=== PATIENT | female | born 1955 | race Caucasian/White ===

== ENCOUNTER 2019-06-06 05:41 | Inpatient (IN) ==
[2019-06-06] MEDS ORDERED: TRANEXAMIC ACID 1,000 MG in NORMAL SALINE 100 ML IV PRN (06:00)
[2019-06-06] MEDS ORDERED: ROPIVACAINE HCL/PF 100 MG, EPINEPHrine 0.2 MG, KETOROLAC TROMETHAMINE 30 MG in NORMAL S... IJ PRN (06:00)
[2019-06-06] MEDS ORDERED: MORPHINE SULFATE 15 MG TABLET.SA PO PRN (06:00)
[2019-06-06] MEDS ORDERED: ceFAZolin SODIUM 1 GM VIAL IV PRN (06:00)
[2019-06-06] MEDS ORDERED: FLU VACC QS2019-20(6MOS UP)/PF 60 MCG/0.5 ML SYRINGE IM ONE (06:54)
[2019-06-06] MEDS ORDERED: ISOPROPYL ALCOHOL 480 APPL BTL MC ONE (07:05)
[2019-06-06] MEDS ORDERED: BUPIVACAINE HCL/EPINEPHRINE 50 ML VIAL IJ ONE (07:17)
[2019-06-06] MEDS ORDERED: MIDAZOLAM HCL/PF 5 MG/ML VIAL ONE (07:18)
[2019-06-06] MEDS ORDERED: BUPIVACAINE HCL/PF 10 ML VIAL ONE (07:18)
[2019-06-06] MEDS ORDERED: EPINEPHrine 1 MG/ML AMPUL ONE (07:18)
[2019-06-06] MEDS ORDERED: PROPOFOL VIAL IV ONE (07:19)
[2019-06-06] MEDS ORDERED: LIDOCAINE HCL 50 ML VIAL ONE (07:20)
[2019-06-06] MEDS ORDERED: SEVOFLURANE 250 ML BTL IH ONE (07:20)
[2019-06-06] MEDS ORDERED: LIDOCAINE HCL 20 ML VIAL ONE (07:21)
--- NOTE | 2019-06-06 07:46 | ANES ---
Anesthesia Pre Procedure Eval Vitals/Labs: Last Vital Signs Temp 36.9 C 06/06/19 06:44 Pulse 59 L 06/06/19 06:44 Resp 18 06/06/19 06:44 BP 124/41 06/06/19 06:44 Pulse Ox 94 06/06/19 06:44 HOME MEDICATIONS HYDROcodone/ACETAMINOPHEN [Chancellor 5-325] 1 tab PO Q4H PRN #40 tab 11/26/18 [Last Taken 05/09/19] apixaban 5 mg tablet 5 mg PO BID #180 tab 04/26/19 [Last Taken 05/30/19] aspirin 81 mg tablet,delayed release 81 mg PO DAILY 04/26/19 [Last Taken 05/30/19] atorvastatin 20 mg tablet 20 mg PO DAILY 04/26/19 [Last Taken 06/05/19] bupropion HCl XL 150 mg 24 hr tablet, extended release 150 mg PO DAILY #30 tab 04/26/19 [Last Taken 06/05/19] levothyroxine 100 mcg tablet 100 mcg PO DAILY #90 tab 04/26/19 [Last Taken 06/05/19] levothyroxine 50 mcg tablet 50 mcg PO DAILY #90 tab 04/26/19 [Last Taken 06/05/19] metoprolol tartrate 50 mg tablet 50 mg PO DAILY 04/26/19 [Last Taken 06/06/19] pantoprazole 20 mg tablet,delayed release 20 mg PO DAILY #90 tab 04/26/19 [Last Taken 06/05/19] paroxetine 20 mg tablet 20 mg PO DAILY #30 tab 04/26/19 [Last Taken 06/05/19] pregabalin 150 mg capsule 150 mg PO TID #90 cap 04/26/19 [Last Taken 05/30/19] tizanidine 2 mg tablet See Rx Instructions PO .COMPLEX PRN #60 tab 04/26/19 [Last Taken Unknown] topiramate 200 mg tablet 200 mg PO BID #60 tab 04/26/19 [Last Taken 06/05/19] topiramate 25 mg tablet 25 mg PO BID 04/26/19 [Last Taken 06/05/19] trazodone 100 mg tablet 200 mg PO HS PRN tab 04/26/19 [Last Taken 06/05/19] Ascorbic Acid [Vitamin C] 1,000 mg PO DAILY 06/06/19 [Last Taken 06/05/19] Calcium Carbonate [Calcium] 500 mg PO DAILY 06/06/19 [Last Taken 06/05/19] Chlorpheniramine Maleate [Aller-Chlor] 8 mg PO DAILY PRN 06/06/19 [Last Taken 06/05/19] Cholecalciferol (Vitamin D3) [Vitamin D3] 1,000 unit PO DAILY 06/06/19 [Last Taken 06/05/19] Cyanocobalamin (Vitamin B-12) [Vitamin B12] 2,500 mcg PO DAILY 06/06/19 [Last Taken 06/05/19] Allergies/Adverse Reactions: Allergies Allergy/AdvReac Type Severity Reaction Status Date / Time azithromycin Allergy Intermediate Hives Verified 06/06/19 07:00 hydrochlorothiazide Allergy Intermediate Hives Verified 06/06/19 07:00 prochlorperazine Allergy Intermediate Hives Verified 06/06/19 07:00 adhesive AdvReac Intermediate burning Verified 06/06/19 07:31 and blisters adhesive tape AdvReac Intermediate burning Verified 06/06/19 07:31 and blisters latex AdvReac Intermediate Hives Verified 06/06/19 07:00 lovastatin AdvReac Mild Nausea Verified 06/06/19 07:00 edisylate Allergy Unknown Unknown Uncoded 06/06/19 07:00 providone-iodine AdvReac Intermediate burning Uncoded 06/06/19 07:00 and blisters plastics AdvReac Mild burning Uncoded 06/06/19 07:00 - Planned Procedure Planned Procedure: Left Total Knee Revision Medication List Reviewed:: Yes Allergies Verified: Yes Medical History (Updated 06/06/19 @ 07:10 by Echo Chu RN) Acid reflux Anxiety DVT (deep venous thrombosis) Onset Date: ~2017 Hyperlipemia Hypertension Hypothyroidism Insomnia Restless leg syndrome Wears glasses Neuroma Seasonal allergies Onset Date: Unknown Surgical History (Updated 06/06/19 @ 07:02 by Echo Chu RN) History of toe surgery bilateral, toenail removals Fatty tumor removed 1998 History of appendectomy 1974 History of tonsillectomy Hx laparoscopic cholecystectomy History of bilateral knee arthroplasty Right-2002, Left-2003 History of hysterectomy Family History (Last Reviewed 06/06/19 @ 07:45 by Giovanni Blackmon CRNA) Mother Cancer pancreatic Father Cancer lung Sister MVA (motor vehicle accident) Brother Alive and well Sister Alive and well Asthma Sister Alive and well Son Arthritis Asthma - Family Anesthesia History Family History:: no untoward family reactions to anesthesia - Airway/Neck/Teeth Within Normal Limits:: Yes Teeth Condition: intact Neck Exam: full range of motion Mallampatti Score: 2 Thyromental (T-M) distance: > 6 cm Mandibulo Hyoid distance: > 3 cm - Respiratory Respiratory Physical: lungs clear Smoking Status: Never smoker Sleep Apnea currently treated: No Sleep Apnea by current assessment: No - Cardiovascular Cardiac History: hypertension, hyperlipidemia Tolerate Activity: Poor Heart Sounds: S1 & S2, Regular - Anesthesia Assessment and Plan ASA Class: PS, III Anesthesia Type Plan: Spinal - lt adductor canal block for postop analgesia Planned difficult intubation/equipment available: No
[2019-06-06] MEDS: RINGER'S SOLUTION,LACTATED 1,000 ML IV PRN ×2 (08:00→09:30)
[2019-06-06] MEDS ORDERED: ceFAZolin SODIUM 1 GM VIAL ONE (08:47)
[2019-06-06] MEDS ORDERED: ZOLPIDEM TARTRATE 5 MG TABLET PO PRN (11:06)
[2019-06-06] MEDS ORDERED: diphenhydrAMINE HCL 50 MG/ML VIAL IV PRN (11:06)
[2019-06-06] MEDS ORDERED: ONDANSETRON HCL/PF 2 MG/ML VIAL IV PRN (11:06)
[2019-06-06] MEDS ORDERED: MAG HYDROX/ALUMINUM HYD/SIMETH 30 ML UDC PO PRN (11:06)
[2019-06-06] MEDS ORDERED: MAGNESIUM HYDROXIDE 30 ML UDC PO PRN (11:06)
[2019-06-06] MEDS ORDERED: MORPHINE SULFATE 2 MG/ML DISP.SYRIN IV PRN (11:06)
[2019-06-06] MEDS ORDERED: ACETAMINOPHEN 500 MG TABLET PO PRN (11:06)
[2019-06-06] MEDS ORDERED: tiZANidine HCL 4 MG TABLET PO PRN ×2 (11:08→12:15)
[2019-06-06] MEDS ORDERED: CHLORPHENIRAMINE PO PRN (11:08)
[2019-06-06] MEDS ORDERED: NON-FORMULARY 1 DOSE DOSE (Trazodone Hcl [Trazodone Hcl] 200 MG) PO PRN (11:08)
--- NOTE | 2019-06-06 11:20 | OR ---
Operative Report - Dictated Report Narrative: DATE OF PROCEDURE: 06/06/2019 PHYSICIAN: Elian Ortega MD [place] TIER: Sekou Pope MD (provided an educated set of skilled hands that consisted with transfer, positioning, prepping, draping, traction, manipulation, irrigation, removal of implants, placement of implants, placement of instruments, closure of wounds, application of dressings, all of which could not be performed by the available surgical crew). PREOPERATIVE DIAGNOSIS: Instability, status post left total knee arthroplasty. POSTOPERATIVE DIAGNOSIS: Instability, status post left total knee arthroplasty. OPERATIONS AND PROCEDURES: Revision left total knee arthroplasty, revision of surgical scar 23 cm. ANESTHESIA: Spinal plus regional plus periarticular local. ESTIMATED BLOOD LOSS: Minimal TOURNIQUET TIME: 125 minutes at 350 mmHg. SPECIMENS: Implants for disposal, tissue for acute inflammation, culture x1. COMPLICATIONS: None. RETAINED IMPLANTS: DePuy Attune revision CRS size 6 left femur cemented, 4 mm distal lateral augment, 8 mm posterior medial, and 8 mm posterior lateral a ugments, Attune revision press-fit femoral stem 18 x 60 mm, Attune revision porocoat fully coated femoral sleeve 30 mm, size 5 revision tibial baseplate rotating platform, revision tibial sleeve Porocoat fully coated 37 mm, revision press-fit stem 16 mm x 60 mm, CRS revision rotating platform insert size 6 x 14 mm crosslinked polyethylene. INDICATIONS FOR PROCEDURE: Mrs. yS is a 64-year-old female who underwent a cruciate retaining left total knee arthroplasty in the past at an outside facility. She had postoperative as well as continued ongoing pain and feeling of instability of her knee. She was seen in clinic and was noted to have instability, most notably coronal instability as well. She had an aspirate, which was bloody and negative for infection and had x-rays that showed no signs of implant loosening; however, she did show signs of instability. Options for treatment were discussed including bracing, observation, and surgical revision. She wished to proceed with revision. The risks, benefits, and alternatives were discussed in clinic. The risk of , blood clots, bleeding, infection, nerve/tendon/blood vessel injury, malposition of implants, persistent pain, erika lure of implants, loosening, stiffness, need for additional procedures, and she wished to proceed. Consent was obtained in the clinic. PROCEDURE: After marking the correct extremity in the preoperative holding area, the patient was taken to the operating room. A timeout was performed. IV antibiotics consisting of Ancef was administered prior to procedure. A regional followed by spinal anesthetic was induced at my request by anesthesia. A Velez catheter was placed and a bump was placed under the left buttock. A well-padded tourniquet was applied to the left thigh. Left leg was then prepped and draped in standard sterile fashion. She was noted to have 4-5 mm of gapping of varus and valgus stressing at all flexion points as well as an unstable drawer. Her range of motion was 0 to 120 of flexion. After prepping and draping the leg in standard sterile fashion, exsanguinating the extremity and inflating the tourniquet to 350 mmHg, a previous anterior incision was excised over a length of 23 cm. Sharp dissection was carried through the skin. There were no retained nonabsorbable sutures. The medial retinaculum was marked out and a paramedial arthrotomy was made. There was notable effusion, but no gross signs of purulence or infectious appearing tissues. A partial synovectomy was performed. The scar tissue was excised. The gutters were cleaned, and the previous polyethylene was excised. The knee was hyperflexed and attention was turned to the femur. A series of osteotomes were utilized in order to disengage the cement bone implant interface, removing the femoral component. Again, this was a cruciate retaining implant. We then turned our attention to the tibia. A series of osteotomes and saw was utilized in order to free the tissue to best of our abilities. The tibia was then removed. The implants revealed no signs of significant wear or damage. We then proceeded to prepare the tibia. The entry reamer up to a size 16 tibial reamer was utilized in order to repair the tibial canal. An entry reamer for the implant as well as a 37mm broach was utilized which gave good stability with good fill of the proximal tibial metaphysis. The proximal tibia was then cleaned and cut in order to provide a flat surface. There was some mild disruption of the posterior and lateral bony cortical rinds, but an intact defect without any blowout of these areas. The trial tray size 5 was then impacted with the trial sleeve and this was secured with a punch. Once it was felt that we prepared the tibia, we turned our attention to the femur. A series of reamers were utilized in order to open up the femoral canal up to a size 18. The femoral sleeve with broach was utilized up to a size 30mm. A clean-up distal cut was made, followed by the 3-in-1 cutting block, which was placed under tension in both flexion and extension in order to make sure that we had a symmetrical box. This was pinned in slight external rotation. Clean-up cuts were then made for augment, 4 mm distal lateral and 8 mm posterior medial and lateral. The trial components were assembled and impacted for trial. A series of inserts were utilized up to a size 14, which gave good stability in flexion and was able to reach maximal extension without hyperextension, stable to varus and valgus stressing as well as drawer. The patella tracked appropriately and overall, it was felt these were the appropriate implants. The implants were removed. The tissue was thoroughly irrigated with pulsatile saline irrigation. Prior to this, the tissue was sent to pathology for acute inflammation, was noted to have less than 5 neutrophils per high-powered field, and culture was also obtained and sent to pathology. Once the bone was thoroughly irrigated and dried, a periarticular joint injection of ropivacaine, Toradol, and epinephrine was placed. The cement was vacuum mixed per chemotherapist's instructions. The implants were assembled on the back table, and cement was placed on the appropriate surfaces, avoiding any cement on the ingrown surface or the stems, and the implants were then impacted. Once the cement was fully cured, the extruded cement was removed. The final polyethylene insert was placed. The knee was again placed through range of motion and was able to reach full extension, flexion 130 degrees with appropriate tracking of the patella, and no instability. A drain was placed exiting superolaterally. The tourniquet was deflated. Hemostasis was obtained. Capsule was closed with interrupted #1 Vicryl. The deep tissues with 0 Vicryl, subcutaneous tissue with 3-0 Vicryl and 3-0 Monocryl, and the skin with cory. Xeroform, 4 x 4s, Sof- Rol and a full leg Kevin was applied and the patient was awoken and transferred to postanesthesia care unit in stable condition. All sponge, needle, and instrument counts were correct prior to closing the wounds.
--- NOTE | 2019-06-06 11:34 | ANES ---
Post Anesthesia Discharge - Transfer of Care Transfer of Care handoff given to nurse: Yes - Discharge from PACU Discharge from PACU when meets criteria: Yes
--- NOTE | 2019-06-06 11:39 | ANES ---
Anesthesia Procedure Note Procedure Note: ANESTHESIA PROCEDURE NOTE Date of procedure: 06/06/2019. Time of procedure: 08 00. Performed by: Emmanuel Blackmon CRNA Meat Slicer: Jina Maxwell RN . Preprocedure diagnosis: Left knee instability. Status post left total knee arthroplasty. Post procedure diagnosis: Same. Procedure: Ultrasound-guided left adductor canal Indications: Postoperative analgesia. Findings: Patient brought to operating room #4 and given a spinal anesthetic. Patient was placed in a supine position. His left inner thigh was prepped with ChloraPrep. ultrasound was utilized to identify the saphenous nerve in the left adductor canal. A 20-gauge 4 inch regional block needle was advanced under ultrasound guidance until tip of needle was positioned just anterior to saphenous nerve. 30 mL of 0.25% Marcaine with epinephrine 1-200,000 was injected with adequate spread of local anesthesia noted. Regional block needle was removed intact. EBL: Minimal. Fluids: N/A. Specimen: N/A. Post procedure condition: The patient tolerated the procedure well. No complications were noted. Thank you for this consultation Emmanuel Blackmon CRNA
[2019-06-06] MEDS: DEXTROSE 5%-LACTATED RINGERS 1,000 ML IV PRN ×2 (12:13→21:31)
[2019-06-06] MEDS: KETOROLAC TROMETHAMINE 15 MG/ML VIAL IV SCH ×3 (12:18→23:42)
[2019-06-06] MEDS: ceFAZolin SODIUM 1 GM in DEXTROSE 5 % IN WATER 50 ML IV SCH ×4 (12:18→19:27)
[2019-06-06] MEDS: PREGABALIN 75 MG CAPSULE PO SCH ×2 (12:22→16:27)
--- NOTE | 2019-06-06 13:40 | ANES ---
Post Anesthesia Assessment - Vital Signs Vitals: Last Vital Signs Temp 37.1 C 06/06/19 11:45 Pulse 76 06/06/19 11:45 Resp 16 06/06/19 11:45 BP 126/55 06/06/19 11:45 Pulse Ox 97 06/06/19 11:45 Airway Patency: Normal - Mental Status Level Of Consciousness: Awake - Pain Level Pain Score: 3 - N/V Assessment Nausea/Vomiting Presence: None Dehydration:: No
[2019-06-06] MEDS: oxyCODONE HCL/ACETAMINOPHEN 1 TAB TABLET PO PRN ×3 (14:57→23:50)
[2019-06-06] MEDS: TOPIRAMATE 50 MG TABLET PO SCH ×2 (20:46→20:47)
[2019-06-06] MEDS: ROSUVASTATIN CALCIUM 10 MG TABLET PO SCH (20:46)
[2019-06-06] MEDS: SENNOSIDES/DOCUSATE SODIUM 1 TAB TABLET PO SCH (20:46)
[2019-06-06] MEDS: MORPHINE SULFATE 15 MG TABLET.SA PO SCH (20:46)
[2019-06-06] MEDS ORDERED: traZODone HCL 50 MG TABLET ONE ×2 (20:54→20:59)
[2019-06-06] MEDS ORDERED: traZODone HCL 150 MG, traZODone HCL 50 MG PO PRN ×2 (21:00)
[2019-06-07] MEDS: ceFAZolin SODIUM 1 GM in DEXTROSE 5 % IN WATER 50 ML IV SCH ×2 (02:06)
[2019-06-07] MEDS: KETOROLAC TROMETHAMINE 15 MG/ML VIAL IV SCH (05:42)
[2019-06-07] MEDS: DEXTROSE 5%-LACTATED RINGERS 1,000 ML IV PRN ×3 (06:20→22:48)
[2019-06-07 06:23] LABS: Hematocrit 32.3 % (37.0-47.0); Hemoglobin 9.9 gm/dL (12.5-16.0); Mean Cell Volume 99.4 fl (78-100); Mean Corpuscular Hemoglobin 30.5 pg (27-31); Mean Corpuscular Hgb Conc 30.7 g/dl (32-36); Mean Platelet Volume 12.7 fl (8-12.5); Platelet Count 199 K/mm3 (150-450); Red Blood Count 3.25 M/mm3 (4.2-5.4); Red Cell Distribution Width 13.2 % (11.5-14.0); White Blood Count 7.9 K/mm3 (4.0-10.5)
[2019-06-07 06:30] LABS: Anion Gap 10.1 mmol/L (6.8-13.8); BUN/Creatinine Ratio 15.7 (9.0-21.6); Calcium * 7.6 mg/dL (7.9-10.9); Carbon Dioxide 25.5 mmol/L (24-32.6); Estimated Creat Clear 38.1; Potassium 3.6 mmol/L (3.4-4.6)
[2019-06-07] MEDS: oxyCODONE HCL/ACETAMINOPHEN 1 TAB TABLET PO PRN ×2 (07:28→19:27)
[2019-06-07] MEDS: PANTOPRAZOLE SODIUM 20 MG TABLET.DR PO SCH (07:29)
[2019-06-07] MEDS: LEVOTHYROXINE SODIUM 150 MCG TABLET PO SCH (07:29)
[2019-06-07] MEDS ORDERED: LEVOTHYROXINE SODIUM 100 MCG TABLET PO SCH (09:00)
[2019-06-07] MEDS ORDERED: LEVOTHYROXINE SODIUM 50 MCG TABLET PO SCH (09:00)
[2019-06-07] MEDS: TOPIRAMATE 50 MG TABLET PO SCH ×4 (09:20→22:40)
[2019-06-07] MEDS: PREGABALIN 75 MG CAPSULE PO SCH ×3 (09:21→17:03)
[2019-06-07] MEDS: CYANOCOBALAMIN 1,000 MCG TABLET PO SCH (09:22)
[2019-06-07] MEDS: CALCIUM CARBONATE 500 MG TAB.CHEW PO SCH (09:22)
[2019-06-07] MEDS: ASCORBIC ACID 500 MG TABLET PO SCH (09:22)
[2019-06-07] MEDS: PARoxetine HCL 20 MG TABLET PO SCH (09:22)
[2019-06-07] MEDS: buPROPion HCL 150 MG TAB.SR.24H PO SCH (09:23)
[2019-06-07] MEDS: APIXABAN 5 MG TABLET PO SCH ×2 (09:23→22:43)
[2019-06-07] MEDS: CHOLECALCIFEROL 1,000 UNIT CAPSULE PO SCH (09:23)
[2019-06-07] MEDS: METOPROLOL TARTRATE 50 MG TABLET PO SCH (09:44)
[2019-06-07] MEDS: MORPHINE SULFATE 15 MG TABLET.SA PO SCH (09:44)
--- NOTE | 2019-06-07 11:47 | PN ---
Subjective - Date and Time Seen Date: 06/07/19 Time: 08:00 Subjective Narrative: Patient reports she is feeling alright this am, "better than yesterday". Pain controlled. Reports did fine getting up with therapy this am and ambulated a little. No lightheadedness. No other complaints. Objective Objective Narrative: Bandages C/D/I. N/V intact LLE. Able to PF/DF ankle. Calf supple. Patient up in chair. - Vitals Vitals: Last Vital Signs Temp 36.3 C 06/07/19 10:05 Pulse 60 06/07/19 10:05 Resp 18 06/07/19 10:05 BP 88/54 L 06/07/19 10:05 Pulse Ox 95 06/07/19 10:05 - Abnormal Lab Findings Abnormal Lab Findings: Abnormal Lab Results 06/07/19 06/07/19 Range/Units 05:15 05:15 RBC 3.25 L (4.2-5.4) M/mm3 Hgb 9.9 L (12.5-16.0) gm/dL Hct 32.3 L (37.0-47.0) % MCHC 30.7 L (32-36) g/dl MPV 12.7 H (8-12.5) fl Sodium 143 H (132-142) mmol/L Plasma Sodium 143 H (130-142) mmol/L Chloride 111 H (97-106) mmol/L BUN 26 H (3-23) mg/dL Creatinine 1.66 H (0.4-1.4) mg/dL Est GFR (Non-Af Amer) 33 L (60-130) mL/min Random Glucose 123 H (70-110) mg/dL Calcium 7.6 L (7.9-10.9) mg/dL - Exam Constitutional: Present: Alert, Oriented x3, Cooperative, No distress Cauti Physician Documentation - Urinary Catheter Management Urethral (Velez) Date of Insertion: 06/06/19 Time of Insertion: 09:06 Date of Removal: 06/07/19 Time of Removal: 11:25 Assessment/Plan - Problems/Diagnosis (1) Status post revision of total replacement of left knee Problem: Acute Narrative: PT, anticoagulation, pain control, once met goals with therapy patient planning on home fawad upon discharge (2) Acute blood loss anemia Problem: Acute Narrative: observation, (3) Hypotension Problem: Acute Narrative: Patient states she runs low in am. Assymptomatic. (4) Hypertension Problem: Chronic (5) Hyperlipemia Problem: Chronic (6) Decreased renal function Problem: Acute Narrative: discontinue Toradol
[2019-06-07] MEDS: ROSUVASTATIN CALCIUM 10 MG TABLET PO SCH (22:41)
[2019-06-07] MEDS: SENNOSIDES/DOCUSATE SODIUM 1 TAB TABLET PO SCH (22:42)
[2019-06-08] MEDS: oxyCODONE HCL/ACETAMINOPHEN 1 TAB TABLET PO PRN ×3 (01:35→17:30)
[2019-06-08] MEDS: PANTOPRAZOLE SODIUM 20 MG TABLET.DR PO SCH (07:59)
[2019-06-08] MEDS: LEVOTHYROXINE SODIUM 150 MCG TABLET PO SCH (07:59)
[2019-06-08] MEDS: APIXABAN 5 MG TABLET PO SCH ×2 (10:05→20:29)
[2019-06-08] MEDS: METOPROLOL TARTRATE 50 MG TABLET PO SCH (10:07)
[2019-06-08] MEDS: PARoxetine HCL 20 MG TABLET PO SCH (10:08)
[2019-06-08] MEDS: MORPHINE SULFATE 15 MG TABLET.SA PO SCH (10:08)
[2019-06-08] MEDS: TOPIRAMATE 50 MG TABLET PO SCH ×4 (10:09→20:29)
[2019-06-08] MEDS: CALCIUM CARBONATE 500 MG TAB.CHEW PO SCH (10:10)
[2019-06-08] MEDS: ASCORBIC ACID 500 MG TABLET PO SCH (10:11)
[2019-06-08] MEDS: CYANOCOBALAMIN 1,000 MCG TABLET PO SCH (10:11)
[2019-06-08] MEDS: CHOLECALCIFEROL 1,000 UNIT CAPSULE PO SCH (10:12)
[2019-06-08] MEDS: buPROPion HCL 150 MG TAB.SR.24H PO SCH (10:12)
[2019-06-08] MEDS: PREGABALIN 75 MG CAPSULE PO SCH ×3 (10:28→17:28)
--- NOTE | 2019-06-08 11:23 | PN ---
Subjective - Date and Time Seen Date: 06/08/19 Time: 09:45 Subjective Narrative: Subjective: Reports some difficulty walking as well as loose bowels. Was able to walk in the room with therapy. Pain is well-controlled. Voiding without any complications. Tolerating by mouth intake. Denies any nausea or vomiting. Denies calf pain. Slept well. Physical exam: Alert and oriented to person, place and time Left lower extremity: Palpable dorsalis pedis pulse. Sensation grossly intact to light touch. Dressings clean and dry. Able to flex and extend ankle and toes. No excessive drainage. Calf and thigh are soft and nontender. Assessment: Postop day 2 status post revision left total knee arthroplasty. Plan: Due to the need for pain control, post-operative limited mobility, protection of the surgical site and joint, monitoring of the wound, and the management of chronic medical conditions, she requires continued inpatient care. Continue with physical and occupational therapy weightbearing as tolerated. Continue with anticoagulation. Pain control with goal to rely on oral medications -she has not been utilizing the MS Contin and we will discontinue this. Hold bowel regimen. Will need 6 weeks with walker or assitive device to protect joint whil e ambulating during the recovery process. Discharge planning -due to her living situation as well as her slow progression of therapy it is likely she will be going to a nursing facility for additional therapy. Objective - Review of Systems Generalized/Overall Review: Reports: No Symptoms Reported Abdominal: Reports: Diarrhea - Vitals Vitals: Last Vital Signs Temp 37.0 C 06/08/19 02:00 Pulse 82 06/08/19 10:07 Resp 20 06/08/19 02:00 BP 119/50 06/08/19 10:07 Pulse Ox 91 L 06/08/19 02:00 - Exam Constitutional: Present: Alert Cauti Physician Documentation - Urinary Catheter Management Urethral (Velez) Date of Insertion: 06/06/19 Time of Insertion: 09:06 Date of Removal: 06/07/19 Time of Removal: 11:25 Assessment/Plan - Problems/Diagnosis (1) Acute diarrhea Problem: Acute (2) Acute blood loss anemia Problem: Acute (3) Decreased renal function Problem: Acute (4) Hypotension Problem: Resolved (5) Status post revision of total replacement of left knee Problem: Acute (6) Hyperlipemia Problem: Chronic (7) Hypertension Problem: Chronic (8) Hypothyroid Problem: Chronic (9) Depression Problem: Chronic
[2019-06-08] MEDS ORDERED: LOPERAMIDE HCL 2 MG CAPSULE PO ONE (13:06)
[2019-06-08] MEDS: SENNOSIDES/DOCUSATE SODIUM 1 TAB TABLET PO SCH (20:27)
[2019-06-08] MEDS: ROSUVASTATIN CALCIUM 10 MG TABLET PO SCH (20:30)
[2019-06-09] MEDS ORDERED: LOPERAMIDE HCL 2 MG CAPSULE PO PRN ×2 (03:19→07:10)
[2019-06-09] MEDS: PANTOPRAZOLE SODIUM 20 MG TABLET.DR PO SCH (07:20)
[2019-06-09] MEDS: LEVOTHYROXINE SODIUM 150 MCG TABLET PO SCH (07:21)
--- NOTE | 2019-06-09 08:01 | DS ---
(1) Acute diarrhea Problem: Acute (2) Acute blood loss anemia Problem: Acute (3) Decreased renal function Problem: Acute (4) Hypotension Problem: Resolved (5) Status post revision of total replacement of left knee Problem: Acute (6) Hyperlipemia Problem: Chronic (7) Hypertension Problem: Chronic (8) Hypothyroid Problem: Chronic (9) Depression Problem: Chronic Date of Discharge:: 06/09/19 Description of Stay: Mrs. Sy was admitted to the floor after undergoing revision left total knee arthroplasty. Tolerated this well. Was admitted to the floor postoperatively for 24 hours of IV antibiotics, pain control, medical comanagement, and occupational and physical therapy. OT and PT were consulted to assist with activities of daily living and ambulation. Was made weightbearing as tolerated with range of motion as tolerated. Pain was initially controlled with IV regimen. This was transitioned to oral once tolerating a by mouth intake. Was resumed on home diet and medications. Had a Velez catheter inserted and the operating room which was discontinued on postoperative day 1. A drain was placed intraoperatively into the knee which was discontinued on postoperative day 1. Home Eliquis SCD and PETROS hose were utilized for DVT prophylaxis. Vital signs remained stable to the hospital course. Labs were obtained which showed a final hemoglobin of 9.6 grams. Pre-op hemoglobin was 11.6. Plan is to monitor clinically. BMP was reviewed and was stable. She did have some diarrhea and we adjusted her bowel regimen as well as adjusted some medications and this improved. Physical examination throughout the hospital course showed an extremity that had sensation that was intact to light touch, palpable pulses, a benign wound, motor intact to the toes, ankle, and knee. Knee range of motion was approximately 5 degrees to 50 degrees. She was slow to progress with therapy and due to her home living situation as well as the need for additional inpatient therapy she is being transferred to [facility] for ongoing skilled therapy. Instructions: Continue with weightbearing as tolerated and range of motion as tolerated. Keep the wound covered with dry gauze and tape. Do not bathe or soak the wound. Change every 2-3 days as needed if there is any drainage. Cover wound while showering. Continue with physical therapy. Resume home diet. Report any fever over 101.5 Fahrenheit, uncontrolled pain, increased drainage, foul odor of drainage, new or increased calf pain or shortness of breath, or any other significant complaints. She will utilize the ice machine and the CPM as instructed. Continue with PETROS hose on the operative extremity until instructed otherwise. No driving until instructed otherwise. Follow up in approximately 2-3 weeks. Procedures Performed: see notes below List Procedures: Revision left total knee arthroplasty Results and Findings: Lab Pending Results 06/06/19 11:09: Pathology Specimen Spec to path 06/07/19 05:15: WBC 7.9, RBC 3.25 L, Hgb 9.9 L, Hct 32.3 L, MCV 99.4, MCH 30.5, MCHC 30.7 L, RDW 13.2, Plt Count 199, MPV 12.7 H 06/07/19 05:15: Sodium 143 H, Plasma Sodium 143 H, Potassium 3.6, Chloride 111 H, Carbon Dioxide 25.5, Anion Gap 10.1, BUN 26 H, Creatinine 1.66 H, Est GFR (Non-Af Amer) 33 L, BUN/Creatinine Ratio 15.7, Random Glucose 123 H, Calcium 7.6 L Discharge Location: [facility] Disposition: SNF Condition: Good Discharge Activity: Activity as tolerated, Weight bearing Discharge Diet: General/regular food Long-Term Therapy: Physical Therapy, Occupation Therapy Referrals: Elian Ortega MD [Staff Physician] - 06/28/19 9:30 am Problem Oriented Discharge Instructions to Patient/Family: Total Knee Replacement, Care After, [id number] Additional Patient Instructions (free text): Pt going to [facility] in [facility] for PT and OT to evaluate and treat. Please fax DC orders to them. Follow up Orthopedic office appointment with Dr Ortega'cici on ThursdayJune 28 at 9:30am. Prescriptions (Any new or edited meds): oxyCODONE HCL/ACETAMINOPHEN [Percocet 5 MG/325 MG] 1 tab PO Q4H PRN #30 tab PRN Reason: Moderate Pain (Pain Scale 4-6) Transmission Status: Received by Arslan Parnell [place], [place] Complete Home Medications List: Complete Home Medication List: apixaban 5 mg tablet 5 mg PO BID #180 tab 04/26/19 aspirin 81 mg tablet,delayed release 81 mg PO DAILY 04/26/19 atorvastatin 20 mg tablet 20 mg PO DAILY 04/26/19 bupropion HCl 150 mg 24 hr tablet, extended release 150 mg PO DAILY #30 tab 04/26/19 levothyroxine 100 mcg tablet 100 mcg PO DAILY #90 tab 04/26/19 levothyroxine 50 mcg tablet 50 mcg PO DAILY #90 tab 04/26/19 metoprolol tartrate 50 mg tablet 50 mg PO DAILY 04/26/19 pantoprazole 20 mg tablet,delayed release 20 mg PO DAILY #90 tab 04/26/19 paroxetine HCl 20 mg tablet 20 mg PO DAILY #30 tab 04/26/19 pregabalin 150 mg capsule 150 mg PO TID #90 cap 04/26/19 tizanidine 2 mg tablet 2 mg PO Q8H PRN #60 tab 04/26/19 topiramate 200 mg tablet 200 mg PO BID #60 tab 04/26/19 topiramate 25 mg tablet 25 mg PO BID 04/26/19 trazodone 100 mg tablet 200 mg PO HS PRN tab 04/26/19 Ascorbic Acid [Vitamin C] 1,000 mg PO DAILY 06/06/19 Calcium Carbonate [Calcium] 500 mg PO DAILY 06/06/19 Chlorpheniramine Maleate [Aller-Chlor] 8 mg PO DAILY PRN 06/06/19 Cholecalciferol (Vitamin D3) [Vitamin D3] 1,000 unit PO DAILY 06/06/19 Cyanocobalamin (Vitamin B-12) [Vitamin B12] 2,500 mcg PO DAILY 06/06/19 Loperamide HCl [Imodium] 2 mg PO BID PRN cap 06/09/19 oxyCODONE HCL/ACETAMINOPHEN [Percocet 5 MG/325 MG] 1 tab PO Q4H PRN #30 tab 06/09/19
[2019-06-09] MEDS: APIXABAN 5 MG TABLET PO SCH (08:38)
[2019-06-09] MEDS: METOPROLOL TARTRATE 50 MG TABLET PO SCH (08:39)
[2019-06-09] MEDS: PARoxetine HCL 20 MG TABLET PO SCH (08:40)
[2019-06-09] MEDS: TOPIRAMATE 50 MG TABLET PO SCH ×2 (08:40→08:41)
[2019-06-09] MEDS: ASCORBIC ACID 500 MG TABLET PO SCH (08:41)
[2019-06-09] MEDS: CALCIUM CARBONATE 500 MG TAB.CHEW PO SCH (08:41)
[2019-06-09] MEDS: CHOLECALCIFEROL 1,000 UNIT CAPSULE PO SCH (08:41)
[2019-06-09] MEDS: CYANOCOBALAMIN 1,000 MCG TABLET PO SCH (08:41)
[2019-06-09] MEDS: buPROPion HCL 150 MG TAB.SR.24H PO SCH (08:42)
[2019-06-09] MEDS: PREGABALIN 75 MG CAPSULE PO SCH (08:43)
[2019-06-09 10:37] VITALS: BP 155/76
[2019-06-09] MEDS: oxyCODONE HCL/ACETAMINOPHEN 1 TAB TABLET PO PRN (11:17)
== END 2019-06-09 11:30 | DRG 467 ==
LOC: MS 05:41
PROVIDERS: ADMIT Orthopaedic Surgery; ATTEND Orthopaedic Surgery
CPT/HCPCS: 36415; 73560; 80048; 85027; 87070; 87075; 88305; 88331; 90686; 97110; 97116; 97161; 97165; 97530; 97535